=== PATIENT | female | born 1955 | race Caucasian/White ===

== ENCOUNTER 2016-09-12 21:24 | Emergency (ER) | payer OTHER ==
--- NOTE | ~2016-09-12 | EKG ---
PATIENT: HUBERT MCQUEEN UNIT #: [id number] Ventricular Rate: 66 BPM Atrial Rate: 66 BPM P-R Interval: 168 ms QRS Duration: 84 ms Q-T Interval: 404 ms QTC Calculation(Bezet): 423 ms P Buras: 55 degrees Calculated R Buras: 1 degrees Diagnosis Line: Sinus rhythm with Premature atrial complexes Diagnosis Line: Possible Inferior infarct , age undetermined Diagnosis Line: Nonspecific ST abnormality Lateral leads Diagnosis Line: Abnormal ECG Diagnosis Line: When compared with ECG of 11-SEP-2015 08:55, Diagnosis Line: Premature atrial complexes are now Present Diagnosis Line: Borderline criteria for Inferior infarct are now Diagnosis Line: Present Diagnosis Line: Nonspecific T wave abnormality now evident in Diagnosis Line: Lateral leads Diagnosis Line: Confirmed by MATHEUS IBANEZ MD ([id number]) on 09/23/2016 Diagnosis Line: 11:48:38 AM INTERPRETING MD: SHAMAR CORDERO
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
[~2016-09-12 21:24] MED LIST: BENZONATATE PO; NO MEDICATIONS; PERCOCET7.5; PREDNISONE5 M1 PO; PROAIR HFA8.5 GM INH
== END 2016-09-12 23:25 | disposition home or self-care (01) ==
LOC: SED 21:24
DX: S29.012A Strain of muscle and tendon of back wall of thorax, initial encounter (principal); S10.93XA Contusion of unspecified part of neck, initial encounter; Z98.890 Other specified postprocedural states; Z88.6 Allergy status to analgesic agent; V43.52XA Car driver injured in collision with other type car in traffic accident, initial encounter
CPT/HCPCS: 71020; 93005; 99283; 99284